=== PATIENT | female | born 1995 | race African-American/Black ===

== ENCOUNTER 2020-07-09 14:41 | Emergency (ER) | payer MEDICAID, OTHER ==
[~2020-07-09] VITALS: Ht 167.6 cm; Wt 74.8 kg
[2020-07-09 14:51] VITALS: BP 132/90
[2020-07-09] MEDS ORDERED: LIDOCAINE 1% HCL (LOCAL ANESTH.) INJ 20ML MDV IJ ONE (17:30)
== END 2020-07-09 17:53 | disposition home or self-care (01) ==
LOC: ER 14:41
DX: N75.1 Abscess of Bartholin's gland (principal)
CPT/HCPCS: 56420; 99284; J2001

== ENCOUNTER 2020-10-21 22:14 | Emergency (ER) | payer OTHER ==
[~2020-10-21] VITALS: Ht 165.1 cm; Wt 63.5 kg
[2020-10-21 22:14] VITALS: BP 139/80
== END 2020-10-22 03:25 | disposition left against medical advice (07) ==
LOC: ER 22:14
DX: N76.0 Acute vaginitis (principal); Z53.21 Procedure and treatment not carried out due to patient leaving prior to being seen by health care provider

== ENCOUNTER 2020-10-22 08:14 | Emergency (ER) | payer OTHER ==
[~2020-10-22] VITALS: Ht 165.1 cm; Wt 63.5 kg
[2020-10-22 08:59] VITALS: BP 127/88
[2020-10-22] MEDS ORDERED: LIDOCAINE 1% HCL (LOCAL ANESTH.) INJ 20ML MDV IJ ONE (09:45)
== END 2020-10-22 10:23 | disposition home or self-care (01) ==
LOC: ER 08:14
DX: N75.1 Abscess of Bartholin's gland (principal)
CPT/HCPCS: 56420; 99284; J2001